=== PATIENT | male | born 1950 | race Caucasian/White ===

== ENCOUNTER 2018-02-15 11:12 | Emergency (ER) | payer MEDICARE ==
[2018-02-15 13:43] LABS: ABS Basophils 0 10^3/ul (0-0.2); ABS Eosinophils 0.1 10^3/ul (0-0.6); ABS Lymphocytes 1.3 10^3/ul (1.0-4.8); ABS Monocytes 0.5 10^3/ul (0-0.8); ABS Neutrophils 4.9 10^3/ul (1.5-7.7); ABS Nucleated RBC 0 10^3/ul; Eosinophil % 1.1 % (0-6); Hematocrit 45 % (42-52); Hemoglobin 15.2 g/dl (14.0-18.0); Lymphocyte % 19.7 % (25-47); Mean Corpuscular HGB Conc 34 g/dl (31-36); Mean Corpuscular Hemoglobin 29 pg (27-31); Mean Corpuscular Volume 84 fL (80-94); Mean Platelet Volume 7.8 um3 (7.4-10.4); Nucleated Red Blood Cells % 0.1; Platelet Count 223 10^3/ul (150-450); Red Blood Count 5.34 10^6/ul (4.00-5.40); Red Cell Distribution Width 17 % (10.5-15); White Blood Count 6.8 10^3/ul (3.5-10.8)
[2018-02-15 15:51] LABS: Urine Appearance Clear; Urine Blood Negative (Negative); Urine Color Yellow; Urine Ketones Trace (Negative); Urine Protein Negative (Negative); Urine Specific Gravity 1.014 (1.010-1.030); Urine Urobilinogen Negative (Negative)
--- NOTE | 2018-02-15 16:46 | ED ---
Abdominal Pain/Male - HPI Summary HPI Summary: The pt is a 67 year old male presenting to the ED with a chief complaint of abdominal pain. Pt states about 3 wks ago when he coughed or sneezed he had some odd feelings in his abd throughout the epigastric area and radiates to both sides. The pt has a hx of IBS so he states that he thought the pain was gas. A week ago today, he got very bad gas pains all throughout his abd. In the last three days, he has had pain right around the belly button, which he said was unbearable last night. Pt is having bowel movements but it hurts when he does. The pt also has a hernia in his pelvic region that is currently out but is not currently bothering him. The pt denies vomiting or fever. - History of Current Complaint Chief Complaint: EDAbdPain Stated Complaint: LOWER ABD PAIN Time Seen by Provider: 02/15/18 15:30 Hx Obtained From: Patient Onset/Duration: Lasting Weeks, Still Present Timing: Constant Severity Initially: Mild Severity Currently: Mild Pain Intensity: 4 Pain Scale Used: 0-10 Numeric Location: Umbilical Radiates: Yes - Allergies/Home Medications Allergies/Adverse Reactions: Allergies Allergy/AdvReac Type Severity Reaction Status Date / Time No Known Allergies Allergy Verified 02/15/18 11:22 PMH/Surg Hx/FS Hx/Imm Hx Previously Healthy: No Cardiovascular History: Reports: Hx Hypercholesterolemia, Hx Hypertension GI History: Reports: Hx Irritable Bowel, Other GI Disorders - see above hx Infectious Disease History: No Infectious Disease History: Denies: Traveled Outside the [place] in Last 30 Days - Family History Known Family History: Positive: Hypertension - Social History Alcohol Use: Rare Substance Use Type: Reports: None Smoking Status (MU): Never Smoked Tobacco Review of Systems Negative: Fever, Chills Negative: Erythema Negative: Sore Throat Negative: Chest Pain Negative: Shortness Of Breath, Cough Positive: Abdominal Pain. Negative: Vomiting, Nausea Negative: dysuria, hematuria Negative: Myalgia, Edema Negative: Rash Neurological: Negative - dizziness All Other Systems Reviewed And Are Negative: Yes Physical Exam - Summary Physical Exam Summary: Constitutional: Well-developed, Well-nourished, Alert. (-) Distressed Skin: Warm, Dry HENT: Normocephalic; Atraumatic Eyes: Conjunctiva normal Neck: Musculoskeletal ROM normal neck. (-) JVD, (-) Stridor, (-) Tracheal deviation Cardio: Rhythm regular, rate normal, Heart sounds normal; Intact distal pulses; The pedal pulses are 2+ and symmetric. Radial pulses are 2+ and symmetric. (-) Murmur Pulmonary/Chest wall: Effort normal. (-) Respiratory distress, (-) Wheezes, (-) Rales Abd: Soft, (-) epigastric tenderness, (-) Distension, (-) Guarding, (-) Rebound , (+) R inguinal hernia, (+) periumbilical hernia, belly pain ongoing. Musculoskeletal: (-) Edema Lymph: (-) Cervical adenopathy Neuro: Alert, Oriented x3 Psych: Mood and affect Normal Triage Information Reviewed: Yes Vital Signs On Initial Exam: Initial Vitals Temp Pulse Resp BP Pulse Ox 98.8 F 64 15 174/87 98 02/15/18 11:19 02/15/18 11:19 02/15/18 11:19 02/15/18 11:19 02/15/18 11:19 Vital Signs Reviewed: Yes Diagnostics - Vital Signs Vital Signs Temp Pulse Resp BP Pulse Ox 02/15/18 15:24 98.2 F 82 18 127/85 02/15/18 13:32 97.5 F 60 12 179/79 100 02/15/18 11:19 98.8 F 64 15 174/87 98 - Laboratory Lab Results: Lab Results 02/15/18 02/15/18 02/15/18 Range/Units 13:16 13:16 13:16 WBC 6.8 (3.5-10.8) 10^3/ul RBC 5.34 (4.00-5.40) 10^6/ul Hgb 15.2 (14.0-18.0) g/dl Hct 45 (42-52) % MCV 84 (80-94) fL MCH 29 (27-31) pg MCHC 34 (31-36) g/dl RDW 17 H (10.5-15) % Plt Count 223 (150-450) 10^3/ul MPV 7.8 (7.4-10.4) um3 Neut % (Auto) 71.5 (38-83) % Lymph % (Auto) 19.7 L (25-47) % Florence % (Auto) 7.2 H (0-7) % Eos % (Auto) 1.1 (0-6) % Baso % (Auto) 0.5 (0-2) % Absolute Neuts (auto) 4.9 (1.5-7.7) 10^3/ul Absolute Lymphs (auto) 1.3 (1.0-4.8) 10^3/ul Absolute Monos (auto) 0.5 (0-0.8) 10^3/ul Absolute Eos (auto) 0.1 (0-0.6) 10^3/ul Absolute Basos (auto) 0 (0-0.2) 10^3/ul Absolute Nucleated RBC 0 10^3/ul Nucleated RBC % 0.1 Sodium 138 (135-145) mmol/L Potassium 3.4 L (3.5-5.0) mmol/L Chloride 103 (101-111) mmol/L Carbon Dioxide 25 (22-32) mmol/L Anion Gap 10 (2-11) mmol/L BUN 16 (6-24) mg/dL Creatinine 1.03 (0.67-1.17) mg/dL Est GFR ( Amer) 87.2 (>60) Est GFR (Non-Af Amer) 72.0 (>60) BUN/Creatinine Ratio 15.5 (8-20) Glucose 113 H (70-100) mg/dL Lactic Acid 1.7 (0.5-2.0) mmol/L Calcium 9.6 (8.6-10.3) mg/dL Total Bilirubin 0.60 (0.2-1.0) mg/dL AST 16 (13-39) U/L ALT 17 (7-52) U/L Alkaline Phosphatase 42 (34-104) U/L C-Reactive Protein 6.48 (<8.01) mg/L Total Protein 8.0 (6.4-8.9) g/dL Albumin 4.6 (3.2-5.2) g/dL Globulin 3.4 (2-4) g/dL Albumin/Globulin Ratio 1.4 (1-3) Amylase 24 L (29-103) U/L Lipase 26 (11.0-82.0) U/L Urine Color Urine Appearance Urine pH (5-9) Ur Specific Madison (1.010-1.030) Urine Protein (Negative) Urine Ketones (Negative) Urine Blood (Negative) Urine Nitrate (Negative) Urine Bilirubin (Negative) Urine Urobilinogen (Negative) Ur Leukocyte Esterase (Negative) Urine Glucose (Negative) Urine Ascorbic Acid (Negative) 02/15/18 Range/Units 15:45 WBC (3.5-10.8) 10^3/ul RBC (4.00-5.40) 10^6/ul Hgb (14.0-18.0) g/dl Hct (42-52) % MCV (80-94) fL MCH (27-31) pg MCHC (31-36) g/dl RDW (10.5-15) % Plt Count (150-450) 10^3/ul MPV (7.4-10.4) um3 Neut % (Auto) (38-83) % Lymph % (Auto) (25-47) % Florence % (Auto) (0-7) % Eos % (Auto) (0-6) % Baso % (Auto) (0-2) % Absolute Neuts (auto) (1.5-7.7) 10^3/ul Absolute Lymphs (auto) (1.0-4.8) 10^3/ul Absolute Monos (auto) (0-0.8) 10^3/ul Absolute Eos (auto) (0-0.6) 10^3/ul Absolute Basos (auto) (0-0.2) 10^3/ul Absolute Nucleated RBC 10^3/ul Nucleated RBC % Sodium (135-145) mmol/L Potassium (3.5-5.0) mmol/L Chloride (101-111) mmol/L Carbon Dioxide (22-32) mmol/L Anion Gap (2-11) mmol/L BUN (6-24) mg/dL Creatinine (0.67-1.17) mg/dL Est GFR ( Amer) (>60) Est GFR (Non-Af Amer) (>60) BUN/Creatinine Ratio (8-20) Glucose (70-100) mg/dL Lactic Acid (0.5-2.0) mmol/L Calcium (8.6-10.3) mg/dL Total Bilirubin (0.2-1.0) mg/dL AST (13-39) U/L ALT (7-52) U/L Alkaline Phosphatase (34-104) U/L C-Reactive Protein (<8.01) mg/L Total Protein (6.4-8.9) g/dL Albumin (3.2-5.2) g/dL Globulin (2-4) g/dL Albumin/Globulin Ratio (1-3) Amylase (29-103) U/L Lipase (11.0-82.0) U/L Urine Color Yellow Urine Appearance Clear Urine pH 7.0 (5-9) Ur Specific Madison 1.014 (1.010-1.030) Urine Protein Negative (Negative) Urine Ketones Trace A (Negative) Urine Blood Negative (Negative) Urine Nitrate Negative (Negative) Urine Bilirubin Negative (Negative) Urine Urobilinogen Negative (Negative) Ur Leukocyte Esterase Negative (Negative) Urine Glucose Negative (Negative) Urine Ascorbic Acid * A (Negative) Result Diagrams: 02/15/18 13:16 02/15/18 13:16 Lab Statement: Any lab studies that have been ordered have been reviewed, and results considered in the medical decision making process. - CT ABD/PELV CT Interpretation: Positive (See Comments) - ABD/PELV CT - 1. Large right inguinal hernia with CT findings suggestive of incarceration. CT Interpretation Completed By: Radiologist - ED physician has reviewed this report. Re-Evaluation - Re-Evaluation 1 Re-Evaluation Time: 18:00 Change: Improved Comment: R inguinal hernia has reduced and is feeling better. Pt evaluated by Dr. Dubon and he recommended d/c if imaging is negative. Second Eval Change: Improved - STOOLING AFTER CONTRAST, FEELS BETTER, NO VOMITING Abdominal Pain Fem Course/Dx - Course Course Of Treatment: Pt is a 67 year old male presenting to the ED with abd pain onset about 3 days ago. He was having some off feelings in his abd the past couple of weeks, but he attributed it to gas pain. It got much worse last night which is why he is here. He presently denies vomiting or fevers. The pt states he has a hx of a pelvic hernia and IBS. 1937 - Upon re-evaluation, the pt looks well, there are no signs of obstruction, and he tolerated PO. Dr. Dubon will see him in his office tomorrow. nO CLINICAL SIGNS OF OBSTRUCTION - NO VOMITING, PASSING STOOL IN THE ED. FEELS BETTER. GAVE INSTRUCTIONS HOW TO SELF REDUCE HERNIA. RETURN TO ED INSTRUCTIONS GIVEN. HAS HAD A TEN HOUR OBSERVATION IN TH E ED, TOLERATING PO WELL. GAVE INSTRUCTIONS ABOUT TAKING HIS NIGHT TIME MEDICATIONS, TAKE HIS DAYTIME MEDICATIONS TOMORROW. I ANSWERED HIS QUESTIONS AT LENGTH, ALSO REINFORCED THE PLAN WITH HIS SISTER CHUY AND ALSO HIS HYVST-JF-ADA, DR. 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 ENCOURAGED PT TO RETURN FOR INTRACTABLE PAIN OR VOMITING OR SEVERE PAIN - Diagnoses Provider Diagnoses: Inguinal hernia, right, Periumbilical pain Discharge - Sign-Out/Discharge Documenting (check all that apply): Patient Departure - Discharge Plan Condition: Stable Disposition: HOME Patient Education Materials: Inguinal Hernia (ED) Referrals: Dougie Dubon MD [Medical Doctor] - 1 Day (TELL CHIEF CLERK SHELTER FIRST THING IN MORNING YOU NEED AN APPOINTMENT FOR 02/16/18.) Additional Instructions: Follow up with Dr. Dubon tomorrow, plan for elective hernia repair. - Billing Disposition and Condition Condition: STABLE Disposition: Home - Attestation Statements Document Initiated by Scribe: Yes Documenting Scribe: Marcella Lewis Provider For Whom Scribe is Documenting (Include Credential): Rufino Johnson MD. Scribe Attestation: I, Marcella Lewis, scribed for Rufino Johnson MD. on 02/15/18 at 2038. Scribe Documentation Reviewed: Yes Provider Attestation: The documentation as recorded by the scribe, Marcella Lewis accurately reflects the service I personally performed and the decisions made by me, Rufino Johnson MD.
[2018-02-15] MEDS ORDERED: Iohexol 300* (CONTRAST) 10 ML SDV IV ONE (17:25)
--- NOTE | 2018-02-15 19:16 | RAD ---
EXAM: CT Abdomen and Pelvis With Intravenous Contrast CLINICAL HISTORY: 67 years old, male; Pain; Abdominal pain; Additional info: Abd pain, periumbilical pain TECHNIQUE: Axial computed tomography images of the abdomen and pelvis with intravenous contrast. All CT scans at this facility use at least one of these dose optimization techniques: automated exposure control; mA and/or kV adjustment per patient size (includes targeted exams where dose is matched to clinical indication); or iterative reconstruction. Coronal and sagittal reformatted images were created and reviewed. CONTRAST: 121 mL of omni 300 administered intravenously. COMPARISON: A/P W CT ABD/PEL W 11/14/2013 9:56 AM FINDINGS: Lung bases: Unremarkable. No mass. No consolidation. ABDOMEN: Liver: Unremarkable. No mass. Gallbladder and bile ducts: Unremarkable. No calcified stones. No ductal dilation. Pancreas: Unremarkable. No mass. No ductal dilation. Spleen: Unremarkable. No splenomegaly. Adrenals: Unremarkable. No mass. Kidneys and ureters: Unremarkable. No solid mass. No hydronephrosis. Stomach and bowel: Large right inguinal hernia containing multiple loops of bowel with focal mucosal thickening. A dilated loop of bowel with air fluid level is present in the abdomen adjacent to the hernia. PELVIS: Appendix: No findings to suggest acute appendicitis. Bladder: Unremarkable. No mass. Reproductive: Unremarkable as visualized. ABDOMEN and PELVIS: Intraperitoneal space: Unremarkable. No free air. No significant fluid collection. Bones/joints: No acute fracture. No dislocation. Soft tissues: See above. Vasculature: Atherosclerotic calcification. No abdominal aortic aneurysm. Lymph nodes: Unremarkable. No enlarged lymph nodes. IMPRESSION: 1. Large right inguinal hernia with CT findings suggestive of incarceration.
[2018-02-15 20:19] VITALS: BP 123/58
== END 2018-02-15 20:17 | disposition home or self-care (01) ==
LOC: ED 11:12
DX: K40.90 Unilateral inguinal hernia, without obstruction or gangrene, not specified as recurrent (principal); R10.33 Periumbilical pain
CPT/HCPCS: 36415; 74177; 80053; 81003; 82150; 83605; 83690; 85025; 86140; 99283; Q9967

== ENCOUNTER 2018-02-22 08:01 | Day surgery (SDC) | payer MEDICARE ==
[~2018-02-22 08:01] MED LIST: Buffered Lidocaine 0.9% SYRIN* 5 ML/SYR SYRINGE INTRADERM ONE; Bupivacaine 0.25% EPI 200,000* 30 ML SDV ONE; Bupivacaine 0.5% SDV PF* 30ML VIAL ONE; Famotidine IV* 10 MG/ML 2 ML (20 mg) IV ONE; Lidocaine 1% INJ* 10 MG/ML 30 ML SDV ONE; Midazolam* 1 MG/ML 5 ML VIAL (5 MG) ONE; fentaNYL* 50 MCG/ML 2 ML VIAL (100 MCG VIAL) ONE
[2018-02-22] MEDS ORDERED: Famotidine IV* 10 MG/ML 2 ML (20 mg) ONE (08:23)
[2018-02-22] MEDS ORDERED: ceFAZolin 2 GM in NS PREMIX(*) 2 GM/100 ML BAG IVPB ONE (08:23)
[2018-02-22] MEDS ORDERED: DiMENhydriNATE IV* 50 MG/ML VIAL IV PUSH PRN (08:28)
[2018-02-22] MEDS ORDERED: Naloxone* 0.4 MG/ML 1 ML VIAL IV PRN (08:28)
[2018-02-22] MEDS ORDERED: oxyCODONE TAB* 5 MG TAB PO PRN (08:28)
[2018-02-22] MEDS ORDERED: HYDROmorphone INJ1* 1 MG/ML SYRINGE IV PRN (08:28)
[2018-02-22] MEDS ORDERED: Acetaminophen TAB* 325 MG PO PRN (08:28)
[2018-02-22] MEDS ORDERED: KETAMINE HCL* 50 MG/ML 10 ML VIAL ONE (09:21)
[2018-02-22] MEDS ORDERED: Ondansetron INJ* 2 MG/ML VIAL ONE (09:28)
[2018-02-22] MEDS ORDERED: Ketorolac INJ* 30 MG/ML 1 ML VIAL ONE (09:28)
[2018-02-22] MEDS ORDERED: Lidocaine 2% PF * 5 ML VIAL ONE (09:28)
[2018-02-22] MEDS ORDERED: Propofol* 10 MG/ML 20 ML BTL IV PUSH ONE (09:28)
[2018-02-22] MEDS ORDERED: DiMENhydriNATE IV* 50 MG/ML VIAL ONE (09:29)
[2018-02-22] MEDS ORDERED: fentaNYL* 50 MCG/ML 2 ML VIAL (100 MCG VIAL) ONE (10:43)
--- NOTE | 2018-02-22 12:13 | BRIEFOPN ---
Brief Operative Note - Surgery Procedures: Procedures Pre-OP Diagnoses: Right inguinal hernia Post-op Diagnosis: same Procedure: open Right inguinal hernia repair with mesh Surgeon: Jagdish Asst: Becka Pereira Anethesia: Local MAC to GA with LMA Dr Cedillo EBL: 50cc IVF: LR Specimen: none Drains: none
[2018-02-22 13:07] VITALS: BP 146/85
--- NOTE | 2018-02-23 08:45 | OP ---
CC: Jordin Steele MD * DATE OF OPERATION: 02/22/18 - [facility] DATE OF : 50. SURGEON: Dougie Dubon MD. ASSISTANTS: ANNE-MARIE Preston and Dr. Jovel. ANESTHESIOLOGIST: Dr. Cedillo. ANESTHESIA: Local MAC anesthesia converted to general anesthesia with LMA. PRE-OP DIAGNOSIS: Right inguinal hernia. POST-OP DIAGNOSIS: Right inguinal hernia. OPERATIVE PROCEDURE: Open right inguinal hernia repair with mesh. ESTIMATED BLOOD LOSS: 50 cc. FLUIDS: Lactated Ringer's given. SPECIMEN: None. DRAINS: None. DESCRIPTION OF PROCEDURE: The patient was identified in the preoperative area. The patient was marked. Consent was signed. He was taken to the operating room , placed on the operating table in supine position. Preoperative antibiotics were given. Sequential devices were placed on bilateral lower extremities. Gentle sedation was induced. The patient's right groin was clipped of hair and prepped and draped in a standard surgical fashion. A time-out was performed. Injection of lidocaine along the proposed incision of the right groin was carried out. This incision was made and deepened down through Arcelia's fascia on to the external oblique aponeurosis which showed clear identifiable defect. We were able to clean off some of the area of the hernia and did reduce the contents of this inguinal hernia. Next, the aponeurosis of the external oblique was incised along the direction of its fibers right to the cord structures and also laterally. Flaps were made both cephalad and caudad and the somatic structures along with the hernia sac were isolated around a David drain. Next, both blunt and sharp dissection were utilized to isolate the spermatic structures. This was performed and we were able to follow the structures that appeared to be in the sac to the internal ring and taking steps to assure hemostasis and not to enter into the sac. We took cremasteric muscle fibers that had been attenuated and also removed what appeared to be a lipoma of the cord. This was passed off, but not sent as a specimen. Next, the floor of the inguinal canal was approached. This appeared to have a large defect, but the contents extending to this area appeared more of the muscular fibers that had stretched out. We removed these until we could see the floor of the canal at best and although this was significantly weakened, I could not identify any enlarged sac that would have given the patient the enlarged hernia that we were aware of. Next, at this point, I extended my incision laterally and medially and we were able to identify the internal ring better. Once we did this, we were able to pull up the adjacent structures and see that we had a portion of the hernia sac or at least peritoneum in our grasp that had been opened up. It was very attenuated tissue that did not appear peritoneal like except for the fact that I could extend my finger into the abdominal cavity. We could see small bowel that appeared healthy and intact and noted that this was adhered to the edges of what appeared to now at this point the portion of the sac. It seems that we had ligated portion of the sac safely, but unknowingly at an early portion of the procedure. At this point, the peritoneum was drawn up and clamped and the small bowel was lysed off of the portions of this peritoneal area until we could safely grasp edges of peritoneum and keeping the small bowel safe. At one point, I did have an area of the small bowel that I wish to imbricate with a 3-0 silk stitch. There was no violation of the full thickness of the bowel, but the 3-0 silk suture was site and this was away from where we were placing our stitches and so it was going to be the closure of the peritoneum. Next, the peritoneum was closed with a running 2-0 Vicryl suture locking this, taking meticulous care not to pick any of the small bowel within this. Once this was closed, this was able to be reduced back. We had applied tension on this to place the sutures. Once this fell back into the abdomen, we could identify our internal ring safely and utilized the large patch and plug set that was opened up. The plug was placed into the internal ring nicely and we have to suture this to the shelving edges of the inguinal ligament and also laterally to the transversalis muscle. With the plug intact, we then placed the patch suturing this to the pubic tubercle and also superiorly to the conjoint tendon and extending this laterally and also sewing it with additional 2-0 Vicryl sutures through the shelving edge of the inguinal ligament. The tails of the mesh were reapproximated with an additional suture after bringing this around the spermatic structures and assuring that it is not too tight. Tails were tucked onto the external oblique aponeurosis and fascial layer intact covering all defects. Next, we irrigated. Hemostasis was achieved and the external oblique aponeurosis was reapproximated with running 2-0 Vicryl stitch and Arcelia's fascia was closed interrupted 2-0 Vicryl stitches and the skin was closed in a standard fashion with 3-0 Vicryl followed by 4-0 Monocryl subcuticular suture. Steri-Strips and sterile dressing were applied. The patient tolerated the procedure well, was awoken up in the OR, and transferred to the PACU in stable condition. Please note that this did represent 2-1/2 hour case, which is 150% more than a typical hour that we would spend on such case. [id number]/CPS #: [id number] AUBRIE
== END 2018-02-22 14:17 | disposition home or self-care (01) ==
LOC: OR 08:01
PROVIDERS: ATTEND Surgery
DX: K40.30 Unilateral inguinal hernia, with obstruction, without gangrene, not specified as recurrent (principal); I10 Essential (primary) hypertension; E78.5 Hyperlipidemia, unspecified; I47.2 Ventricular tachycardia; J30.2 Other seasonal allergic rhinitis; K21.9 Gastro-esophageal reflux disease without esophagitis; F41.9 Anxiety disorder, unspecified
CPT/HCPCS: C1781; J0690; J1240; J1885; J2250; J2405; J2704; J3010

== ENCOUNTER 2018-09-10 17:34 | Inpatient (IN) | payer MEDICARE ==
--- OUTSIDE RECORDS SUMMARY | 2018-09-10 17:53 | XMS REPORT | Continuity of Care Document ---
:1950 External Reference #:[id number] Author Name Ace Ambriz M.D. Address 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 Cedric GARCIA, Jordin Primary Care Physician Unavailable Payers Date Identification Numbers Payment Provider Subscriber Policy Number: [id number] Medicare [place] Fady Liang JR PayID: [id number] [address] [place] [address] Policy Number: [id number] [facility] Health Care Options Fady Liang JR PayID: [id number] [address] [place] [address] Advance Directives Description No Information Available Problems Description No Information Family History Date Family Member(s) Observation Comments General Glaucoma Father Glaucoma Social History Type Date Description Comments Sex Unknown ETOH Use Never used alcohol Tobacco Use Start: Unknown Patient has never smoked Smoking Status Reviewed: 08/18/18 Patient has never smoked Allergies, Adverse Reactions, Alerts Date Description Reaction Status Severity Comments 07/10/2018 Lactose Active Medications Medication Date Status Form Strength Qnty SIG Indications Ordering Provider Simvastatin 10/19 Active Tablets 20mg 90tab take one Cedric marta wen MD, by mouth Jordin once daily Metrogel 04/25 Active Gel 1% Cedric Jordin GARCIA Metoclopramide HCL 11/06 Active Tablets 5mg 60tab Take edu marta One-Half Aliya GARICA By Mouth Once Daily Except On 6TH Day Take One Whole Tablet Ranitidine HCL 08/20 Active Tablets 300mg 90tab take one Cedric marta tablet MD by mouth Jordin once daily Hydrochlorothiazide 02/26 Active Tablets 25mg 90tab take one Cedric marta tablet MD by mouth Jordin once daily Vitamin C Active Tablets 500mg 1 po qd / Vitamin D Active Tablets 1000Unit 1 po qd Unknown /0000 Nexium Active Capsules 40mg 90cap [address] marta Amitriptyline HCL Active Tablets 10mg 60tab take 1 Unknown /0000 s tablet every evening Metoprolol Succinate Active Tablets 100mg Take 1 Unknown ER /0000 ER 24HR po am and 50mg at hs Potassium Chloride ER Active Tablets 20Meq 1 by Unknown /0000 ER mouth every day Immunizations Description No Information Available Vital Signs Date Vital Result Comment 08/18/2018 11:24am Intraocular Pressure Right Eye 20 mmHg Intraocular Pressure Left Eye 20 mmHg Results Description No Information Available Procedures Description No Information Available Encounters Description No Information Available Plan of Treatment 08/18/2018 - Segundo Melendez, ODH49.21 Sixth [abducent] nerve palsy, right eyeFollow up:1 [id number] Squamous blepharitis right lower eyelidFollow up:1 [id number] Squamous blepharitis left lower eyelidFollow up:1 [id number] Open angle with borderline findings, low risk, bilateralFollow up:1 month
[2018-09-10] MEDS ORDERED: NS 0.9% 1000 ML** 1,000 ML IV ONE (19:44)
--- NOTE | 2018-09-10 19:49 | ED ---
Complex/Multi-Sys Presentation - HPI Summary HPI Summary: This patient is a 68 year old F presenting to ED accompanied by a friend with a chief complaint of multiple complaints since 08/16/18. It all started off with swollen eyes (saw an platform worker and was dx with sixth nerve palsy in the R eye). He was given glasses to help fix it but he still continues to have double vision. The next week, he woke up with a stiff neck that lasted 3-4 weeks. Now, he has difficulty swallowing due to L gland and L cheek swelling since 10 days ago that has recently worsened. He has only been able to swallow water and bananas. He says that he hasnt been able to take his medications for the last 3 days. The patient rates the pain 0/10 in severity. Symptoms aggravated by nothing. Symptoms alleviated by nothing. Friend reports the patient has had SOB and that he has been dragging his L foot for the last 3 days. The patient has weakness in the RLE and has had difficulty ambulating for the last 3 days.The patient lives alone. - History Of Current Complaint Chief Complaint: EDWeakness Time Seen by Provider: 09/10/18 19:20 Hx Obtained From: Patient, Other: - accompanied by friend Onset/Duration: Sudden Onset, Lasting Weeks, Still Present Timing: Constant, Weeks Severity Currently: None Aggravating Factor(s): nothing Alleviating Factor(s): nothing Associated Signs And Symptoms: Positive: SOB, Other - dragging his L foot, weakness in the RLE, difficulty ambulating, swollen eyes, double vision, stiff neck, L gland and cheek swelling, and difficulty swallowing - Allergies/Home Medications Allergies/Adverse Reactions: Allergies Allergy/AdvReac Type Severity Reaction Status Date / Time No Known Allergies Allergy Verified 02/22/18 08:25 PMH/Surg Hx/FS Hx/Imm Hx Endocrine/Hematology History: Denies: Hx Diabetes Cardiovascular History: Reports: Hx Hypercholesterolemia, Hx Hypertension, Other Cardiovascular Problems/Disorders - PAROXYSMAL V- TACH: DR CASILLAS, 2015 CARDIAC CATH DONE Denies: Hx Pacemaker/ICD GI History: Reports: Hx Gastroesophageal Reflux Disease, Hx Hiatal Hernia, Hx Irritable Bowel, Other GI Disorders History: Denies: Hx Renal Disease Musculoskeletal History: Reports: Other Musculoskeletal History - LEFT KNEE Sensory History: Reports: Hx Contacts or Glasses - DOESN'T WAER ALL THE TIME Denies: Hx Hearing Aid Opthamlomology History: Reports: Hx Contacts or Glasses - DOESN'T WAER ALL THE TIME Psychiatric History: Denies: Hx Panic Disorder - Surgical History Surgery Procedure, Year, and Place: 02/2018 HERNIA REPAIR-BOWEL/SMALL INTESTINE Hx Anesthesia Reactions: No Infectious Disease History: No Infectious Disease History: Denies: Traveled Outside the [place] in Last 30 Days - Family History Known Family History: Positive: Hypertension - Social History Alcohol Use: Daily Alcohol Amount: 1 DRINK/DAY WITH DINNER Substance Use Type: Reports: None Smoking Status (MU): Never Smoked Tobacco Review of Systems Positive: Other - swollen eyes, double vision Positive: Other - L gland and cheek swelling, difficulty swallowing Positive: Other - stiff neck Neurological: Other - dragging his L foot, weakness in the RLE, difficulty ambulating All Other Systems Reviewed And Are Negative: Yes Physical Exam - Summary Physical Exam Summary: VITAL SIGNS: Reviewed. GENERAL: Patient is a well-developed and nourished MALE who is lying comfortable in the stretcher. Patient is not in any acute respiratory distress. HEAD AND FACE: No signs of trauma. No ecchymosis, hematomas or skull depressions. No sinus tenderness. EYES: PERRLA, EOMI x 2, No injected conjunctiva, no nystagmus. EARS: Hearing grossly intact. Ear canals and tympanic membranes are within normal limits. MOUTH: Oropharynx within normal limits. NECK: Supple, trachea is midline, no adenopathy, no JVD, no carotid bruit, no c- spine tenderness, neck with full ROM. CHEST: Symmetric, no tenderness at palpation LUNGS: Clear to auscultation bilaterally. No wheezing or crackles. CVS: Regular rate and rhythm, S1 and S2 present, no murmurs or gallops appreciated. ABDOMEN: Soft, non-tender. No signs of distention. No rebound no guarding, and no masses palpated. Bowel sounds are normal. EXTREMITIES: FROM in all major joints, no edema, no cyanosis or clubbing. NEURO: Alert and oriented x 3. Speech is normal and follows commands. 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 Minimal weakness in the RLE *Somewhat difficulty holding against gravity*. Normal voice, no drooling, and is able to take sips of water without vomiting. SKIN: Dry and warm GCS: 15 Triage Information Reviewed: Yes Vital Signs On Initial Exam: Initial Vitals Temp Pulse Resp BP Pulse Ox 98.3 F 84 16 152/96 98 09/10/18 17:38 09/10/18 17:38 09/10/18 17:38 09/10/18 17:38 09/10/18 17:38 Vital Signs Reviewed: Yes Diagnostics - Vital Signs Vital Signs Temp Pulse Resp BP Pulse Ox 09/10/18 17:38 98.3 F 84 16 152/96 98 - Laboratory Result Diagrams: 09/10/18 21:36 09/10/18 21:36 Lab Statement: Any lab studies that have been ordered have been reviewed, and results considered in the medical decision making process. - Radiology CXR Radiology Interpretation Completed By: ED Physician Summary of Radiographic Findings: No acute processes. Pending radiologist official report. - CT Brain CT CT Interpretation Completed By: Radiologist Summary of CT Findings: 1. No acute intracranial abnormality. ASPECT = 10. 2. Age-related atrophy and mild chronic small vessel ischemic disease. Dr. Abdul has reviewed this radiology report. Neck CT CT Interpretation Completed By: Radiologist Summary of CT Findings: Normal post contrast neck CT. Dr. Abdul has reviewed this radiology report. - EKG 2011 Cardiac Rate: NL - 75 BPM EKG Rhythm: Sinus Rhythm Summary of EKG Findings: PVCs and non-specific T-wave changes Re-Evaluation - Re-Evaluation First Eval Re-Evaluation Time: 23:15 Comment: The patient states he is not much better. Second Eval Re-Evaluation Time: 23:35 Comment: BP was low. Complex Multi-Symp Course/Dx Assessment/Plan: This patient is a 68 year old F presenting to ED accompanied by a friend with a chief complaint of multiple complaints since 08/16/18. In the ED course, the patient was given fluids, potassium, and lopressor. EKG reveals NSR at 75 BPM, PVCs, and non-specific T-wave changes. CXR, per Dr. Abdul, reveals no acute processes. Brain CT reveals 1. No acute intracranial abnormality. ASPECT = 10. 2. Age-related atrophy and mild chronic small vessel ischemic disease. Neck CT reveals normal post contrast neck CT. Consulted Dr. Fowler about the patient's case at 2320 and she accepts taylor patient for admission. This patient will be admitted with dx of dysphasia. Patient understands and agrees with this plan. - Diagnoses Differential Diagnoses/HQI/PQRI: Other - dysphasia Provider Diagnoses: Dysphasia - Physician Notifications Discussed Care Of Patient With: Giovanna Fowler Time Discussed With Above Provider: 23:20 Instructed by Provider To: Admit As Inpatient Discharge - Sign-Out/Discharge Documenting (check all that apply): Patient Departure - admit Patient Received Moderate/Deep Sedation with Procedure: No - Discharge Plan Condition: Stable Disposition: ADMITTED TO [facility] - Billing Disposition and Condition Condition: STABLE Disposition: Admitted to [facility] - Attestation Statements Document Initiated by Nevilleibe: Yes Documenting Scribe: Eladio Beaulieu Provider For Whom Ward is Documenting (Include Credential): Seth Abdul MD Scribe Attestation: Eladio Robins, scribed for Seth Abdul MD on 09/11/18 at 0607. Scribe Documentation Reviewed: Yes Provider Attestation: The documentation as recorded by the Eladio moreno accurately reflects the service I personally performed and the decisions made by Remedios mcclellan MD Status of Scribe Document: Viewed
[2018-09-10] MEDS ORDERED: Metoprolol Tartrate IV* 1 MG/ML 5 ML VIAL IV ONE (19:51)
[2018-09-10 21:47] LABS: ABS Basophils 0 10^3/ul (0-0.2); ABS Eosinophils 0.1 10^3/ul (0-0.6); ABS Lymphocytes 1.4 10^3/ul (1.0-4.8); ABS Monocytes 0.6 10^3/ul (0-0.8); ABS Neutrophils 4.7 10^3/ul (1.5-7.7); ABS Nucleated RBC 0 10^3/ul; Eosinophil % 1.7 %; Hematocrit 47 % (36-46); Hemoglobin 16.1 g/dL (14.0-18.0); Lymphocyte % 20.5 %; Mean Corpuscular HGB Conc 34 g/dL (31-36); Mean Corpuscular Hemoglobin 32 pg (27-31); Mean Corpuscular Volume 93 fL (80-94); Mean Platelet Volume 8.3 fL (7.4-10.4); Nucleated Red Blood Cells % 0; Platelet Count 231 10^3/uL (150-450); Red Blood Count 5.03 10^6 /uL (4.18-5.48); Red Cell Distribution Width 13 % (10.5-15); White Blood Count 6.9 10^3/uL (3.5-10.8)
[2018-09-10 21:54] LABS: Activated Partial Thrombo Time 26.8 seconds (26.0-36.3); INR 1.23 (0.77-1.02)
[2018-09-10 22:04] LABS: Albumin 4.5 g/dL (3.2-5.2); Albumin/Globulin Ratio 1.6 (1-3); BUN/Creatinine Ratio 26.6 (8-20); C Reactive Protein 4.73 mg/L (<8.01); Calcium 9.6 mg/dL (8.6-10.3); EGFR African American 96.6 (>60); EGFR Non-African American 79.8 (>60); Globulin 2.8 g/dL (2-4); Magnesium 1.9 mg/dL (1.9-2.7); Potassium 3.3 mmol/L (3.5-5.0); Total Bilirubin 0.7 mg/dL (0.2-1.0); Total Protein 7.3 g/dL (6.4-8.9)
[2018-09-10 22:07] LABS: Troponin I 0.02 ng/mL (<0.04)
[2018-09-10] MEDS ORDERED: Iohexol 300* (CONTRAST) 10 ML SDV IV ONE (22:09)
[2018-09-10] MEDS ORDERED: KCL 10 MEQ/50 ML IVPREMIX* 10 MEQ/50 ML BAG IV ONE (22:19)
[2018-09-10 22:40] LABS: TSH (Thyroid Stimulating Horm) 0.8 mcIU/mL (0.34-5.60)
[2018-09-11] MEDS ORDERED: NS 0.9% 1000 ML** 1,000 ML IV SCH (01:30)
[2018-09-11] MEDS: KCL 20 MEQ/100 ML IVPREMIX* 20 MEQ/100 ML BAG IV SCH ×3 (02:09→06:44)
[2018-09-11] MEDS: Metoprolol Tartrate IV* 1 MG/ML 5 ML VIAL IV SCH ×6 (02:09→22:24)
--- NOTE | 2018-09-11 04:59 | HP ---
CC: Dr. Steele; Dr. Chavez; Dr. Ralph; Dr. Ambriz * HISTORY AND PHYSICAL: DATE OF ADMISSION: 09/11/18 PRIMARY CARE PROVIDER: Dr. Steele. CHIEF COMPLAINT: Trouble swallowing. HISTORY OF PRESENT ILLNESS: Fady Liang is a 68-year-old male with a history of irritable bowel syndrome, history of ventricular tachycardia; on metoprolol, and hypertension as well as dyslipidemia who was diagnosed by Dr. Ambriz of ophthalmology with right nerve palsy on 08/16/18. Patient stated that on that day he noted that he was seeing double when he looked to the right. He went to see Dr. Ambriz, who stated that patient had nerve palsy. He was recommended to have MRIs obtained. Those were done on 08/22/18 and both brain MRI and cervical spine MRI were unremarkable, apart from a small focus of enhancement within the right inferior basal ganglia measuring up to 0.3 cm in size, of unclear etiology. There were also scattered small nonenhancing foci of elevated T2 FLAIR signal within the periventricular and subcortical white matter that could be seen in association with migraine headache or the sequelae of previous infection, inflammation, or chronic small-vessel ischemia. Once again, the C-spine MRI showed multilevel neural foraminal narrowing as well as left-sided disk protrusions at C2 to C4. Patient stated that after 08/16/18 when he was diagnosed with the right facial nerve palsy, he had been doing okay, apart from getting adjusted to seeing double on the right side, but for approximately 3 weeks or so, he has had neck pain and left-sided cheek pain. Just within the past week, he was seen by Dr. Steele for that who prescribed amoxicillin for the patient. Patient has taken it for 5 days and he stated that his symptoms of left cheek swelling and "swollen glands in the neck" resolved. Today, he was noted by his female friend that he was dragging his left foot. He also was noted to be dyspneic on exertion, although he himself does not complain of that. His female friend, who was assisting him in the patient's room today, stated that she thought he was looking "breathless." He has not had problems with any chest pain. For the past couple of weeks, patient stated that he has been having problems with swallowing and for the past 2 days, it was unbearable. He stated that he was trying to swallowing his metoprolol, but it was "coming up." He denied any nausea, but he has stated that the pills were getting stuck. He denies any pain with swallowing. Due to the problems of swallowing, he presented to the emergency department and he was noted to have frequent PVCs since he missed his dose of metoprolol. He was treated with IV metoprolol and he is going to be placed on overnight observation with the diagnosis of difficulty swallowing and frequent PVCs. PAST MEDICAL HISTORY: 1. History of irritable bowel syndrome. 2. Recent inguinal hernia surgery in February 2018. 3. History of gastroesophageal reflux disease. 4. History of ventricular tachycardia that was exercise-induced, under the care of Dr. Chavez, on metoprolol. 5. History of hemorrhoids. 6. Hypertension. 7. Dyslipidemia. ALLERGIES: No known drug allergies. HOME MEDICATIONS: Include: 1. "IBgard" 1 tablet daily. 2. Metronidazole topical to affected areas of face p.r.n. 3. Vitamin D3 at 1000 units daily. 4. Vitamin C 500 mg daily. 5. Simvastatin 20 mg daily. 6. Fiber supplement 1 tablet daily. 7. Ranitidine 300 mg at bedtime. 8. Probiotic 1 mg daily. 9. Potassium chloride 20 mEq daily. 10. Metoprolol succinate 50 mg q.p.m., 100 mg q.a.m. 11. Reglan 5 mg at bedtime. 12. Mag-Ox 400 mg daily. 13. Hydrochlorothiazide 25 mg daily. 14. Nexium 40 mg daily. 15. Vitamin B12 at 1000 mcg daily. 16. Calcium carbonate 1000 mg daily. 17. Amitriptyline 10 mg at bedtime. FAMILY HISTORY: Positive for mother with history of breast cancer who at the age of 62. Father with history of heart disease who of lung cancer in his 80s. 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 He denies any current alcohol use, but he has a history of alcohol use over 15 years ago. He denies any drug use. He lives alone and as his surrogate he names his nephew, Levi Trinidad, who is a neurosurgeon in [place]. Levi's phone number is [phone]. He also has a sister who lives in [facility]. REVIEW OF SYSTEMS: Please see history of present illness. All the remaining 12 systems were reviewed with the patient and were, otherwise, negative. PHYSICAL EXAMINATION GENERAL: Patient is a pleasant 68-year-old male who is in no acute distress. Alert, awake, oriented x3. VITAL SIGNS: Blood pressure of 137/106, heart rate of 95 and with frequent PVCs on telemetry, respiratory rate 20, oxygen saturation 98% on room air, temperature 98.0. HEENT: Head: Atraumatic, normocephalic. Eyes: Pupils are equal and reactive to light and accommodation. Oropharynx clear. Mucosa moist. NECK: Supple. No JVD. No bruits bilaterally. There is no neck stiffness and no tenderness to palpation. No masses are detected on neck evaluation. RESPIRATORY: Clear to auscultation bilaterally. CARDIOVASCULAR: Regular rate and rhythm. No murmur. ABDOMEN: Soft, nontender. Bowel sounds present in all 4 quadrants. EXTREMITIES: There is no edema, pulses +2 bilaterally. There is no clubbing or cyanosis. NEUROLOGIC EVALUATION: Patient has problems with abduction of the right eye due to right nerve palsy. Otherwise, his cranial nerves appear to be intact. His rapid alternating movements in bilateral upper extremities are fine. His eritby-mk-rbxo is minimally dysmetric, but symmetrical. There is no pronator drift. His hand circuit clerk is 5/5 bilaterally. On evaluation of motor function of bilateral lower extremities, patient appears to have right leg weakness. He is able to raise it off the bed for a brief amount of time, but has problems with doing it against resistance. The motor strength would be at 4 /5. Babinski's is negative bilaterally. Motor strength in the left leg is 5/ 5. Vkgx-cw-mkpv is not abnormal bilaterally. Gait was not assessed. Speech is clear. SKIN: On evaluation of the skin, no ecchymotic areas or rashes noted. DIAGNOSTIC STUDIES/LAB DATA: Laboratory data showed white blood cell count of 6.9, hemoglobin 16.1, hematocrit of 47, and platelets of 231. Sodium of 141, potassium 3.3, chloride 105, carbon dioxide 24, anion gap of 14, BUN 25, creatinine 0.94. Liver functions are unremarkable. Troponin of 0.02. TSH of 0.8. Brain CT: Impression: "No acute intracranial abnormality. Age-related atrophy and mild chronic small-vessel ischemic change." Neck CT: Impression: "Normal postcontrast neck CT." Patient's EKG showed normal sinus rhythm at the rate of 75 beats per minute with frequent PVCs. Portable chest x-ray read by myself prior to the official radiologist's report shows bilateral lower lobe atelectasis. Normal cardiac silhouette. ASSESSMENT AND PLAN: 1. A 68-year-old male with history of right nerve palsy diagnosed approximately a month ago who now has problems with swallowing and right leg weakness. At this point, his MRI of the brain showed nonspecific 3 mm change within the basal ganglia. I am unsure that this location could cause the patient's problems. Patient also has dysphagia and right leg weakness. At this point, I am going to ask Dr. Ralph from neurology to see patient in consultation. Patient is going to be placed on neuro checks every 2 hours and on telemetry monitored bed. 2. To address patient's dysphagia specifically, patient is going to have a speech therapy evaluation with a barium swallow as well as esophagogram to evaluate his swallowing function. For the time being, patient is going to be on sips of clears. He is going to be placed on intravenous hydration for the time being and on IV Protonix. 3. Patient has frequent premature ventricular contractions and has history of ventricular tachycardia with exercise. I suspect his frequent premature ventricular contractions are due to patient's hypokalemia, which is going to be replaced IV. His magnesium is at 1.9. Due to patient having problems swallowing pills and unable to take metoprolol, I will place him on a scheduled dose of metoprolol at 5 mg IV every 4 hours with hold parameters. 4. For DVT prophylaxis, patient is to be placed on heparin subcutaneously. 5. Patient's code status is full. His surrogate is his nephew, as mentioned above. TIME SPENT: Approximately 75 minutes were spent on the admission of this patient, more than half that time was spent [id number] with the patient during the interview and physical exam. [id number]/[facility] #: [id number] MTDD
[2018-09-11] MEDS: Heparin VIAL(*) 5000 UNITS/ML VIAL (FIVE THOUSAND) SUBCUT SCH ×3 (05:31→22:23)
[2018-09-11] MEDS: Pantoprazole IV* 40 MG IV SCH (09:37)
[2018-09-11] MEDS: D5W 1/2 NS KCl 20 Meq 1000 ML* 1,000 ML IV SCH ×2 (13:44→22:21)
--- NOTE | 2018-09-11 17:04 | PN ---
Subjective Date of Service: 09/11/18 Interval History: Patient aware he can;t swallow. He states his speech gets more garbled when he talks a while. Feels better since IV fluids started. No new c/o. Objective Active Medications: Heparin Sodium (Porcine) (Heparin Vial(*)) 5,000 units SUBCUT Q8HR [facility] Last Admin: 09/11/18 13:45 Dose: 5,000 units Potassium Chloride/Dextrose (D5w 1/2 Ns Kcl 20 Meq 1000 Ml*) 1,000 mls @ 125 mls/hr IV PER RATE [facility] Last Admin: 09/11/18 13:44 Dose: 125 mls/hr Metoprolol Tartrate (Lopressor Iv*) 5 mg IV Q4H [facility] Last Admin: 09/11/18 13:45 Dose: 5 mg Pantoprazole Sodium (Protonix Iv*) 40 mg IV DAILY [facility] Last Admin: 09/11/18 09:37 Dose: 40 mg Oxygen Devices in Use Now: None Appearance: Alert, in a chair. In good spirits. Looks comfortable. Eyes: No Scleral Icterus Respiratory: Symmetrical Chest Expansion and Respiratory Effort, Clear to Auscultation, Clear to Percussion, - - Strong inspiration and expiration, Cardiovascular: NL Sounds; No Murmurs; No JVD, RRR, No Edema, - Extremities: No Edema, No Clubbing, Cyanosis, - Skin: No Rash or Ulcers, No Nodules or Sclerosis, - Neurological: Alert and Oriented x 3, NL Sensation - Speech dysarthric Result Diagrams: 09/13/18 04:27 09/13/18 04:27 Assess/Plan/Problems-Billing Assessment: - Patient Problems (1) Bulbar palsy Current Visit: Yes Status: Acute Code(s): G12.22 - PROGRESSIVE BULBAR PALSY SNOMED Code(s): 85838757 Comment: Failed swallow eval, will have to stay NPO. Dr. Ralph to do testing for MG. May need PEG tube for nutrition and meds. (2) HTN (hypertension) Current Visit: Yes Status: Acute Code(s): I10 - ESSENTIAL (PRIMARY) HYPERTENSION SNOMED Code(s): 14081638 Comment: On IV metoprolol. (3) Ventricular tachycardia Current Visit: Yes Status: Acute Code(s): I47.2 - VENTRICULAR TACHYCARDIA SNOMED Code(s): 17400758 Comment: Hx of exercise-induced VT. On metoprolol at home per Dr. Chavez. On IV metoprolol as of 09/11/18.
--- NOTE | 2018-09-11 17:33 | ECHO ---
Patient: LAKEISHA RIVERO [facility] Rec#: [id number] : 1950 Date: 09/11/2018 Age: 68y Height: 173 cm / 68.1 in Weight: 88 kg / 194.0 lbs Sex: M BSA: 2.02 Room#: 433 Admit Date#: 09/11/2018 Type: Inpatient Referring: Giovanna Fowler MD Reading: Eric Chavez MD Power Checker: Alessandra Parada RDCS,RDMS CC: Jordin Steele MD Transthoracic Echocardiogram Indication: ABN EKG BP: 151/75 HR: 70 Rhythm: NSR with PVCs Findings History: Vtach, HTN, HLD Technical Comments: The study quality is fair. The study was technically limited due to the patient's inability to lay in the left lateral decubitus position. Left Ventricle: The left ventricular chamber size is normal. Mild concentric left ventricular hypertrophy is observed. Global left ventricular wall motion and contractility are within normal limits. There is normal left ventricular systolic function. The estimated ejection fraction is 55-60%. There is no consistent Doppler evidence of clinically significant diastolic dysfunction. Left Atrium: The left atrium is mildly dilated. Right Ventricle: The right ventricular chamber size and systolic function are within normal limits. Right Atrium: The right atrium is slightly dilated. Aortic Valve: The aortic valve is trileaflet. Systolic excursion of the aortic valve is normal. There is aortic annular calcification. There is mild aortic regurgitation. There is no evidence of aortic stenosis. Mitral Valve: The mitral valve leaflets appear normal. There is no evidence of mitral regurgitation. There is no evidence of mitral stenosis. Tricuspid Valve: The tricuspid valve leaflets are normal. There is trace tricuspid regurgitation. No pulmonary hypertension is noted. Pulmonic Valve: The pulmonic valve structure is not well visualized. Pericardium: There is no significant pericardial effusion. Aorta: There is borderline dilatation of the ascending aorta. There is no dilatation of the aortic arch. The aortic root is normal in size. Pulmonary Artery: The main pulmonary artery is not well visualized. Venous: The inferior vena cava appears normal in size. There is a greater than 50% respiratory change in the inferior vena cava dimension. Summary: There are no significant changes when compared to the previous study done on 12/03/14 Conclusions Mild concentric left ventricular hypertrophy is observed. Global left ventricular wall motion and contractility are within normal limits. The estimated ejection fraction is 55-60%. Systolic excursion of the aortic valve is normal. There is mild aortic regurgitation. There is no evidence of mitral regurgitation. There is trace tricuspid regurgitation. There is no significant pericardial effusion. Measurements Name Value Normal Range RVIDd (AP) 2D 2.5 cm (0.9 - 2.6) RVDdMajor (2D) 3.3 cm (2.2 - 4.4) RAd ISD 4CH 5.4 cm (3.4 - 4.9) RA (A4C)W 4.2 cm (2.9 - 4.6) IVSd (2D) 1.2 cm (0.6 - 1) LVPWd (2D) 1.1 cm (0.6 - 1) LVIDd (2D) 4.8 cm (3.6 - 5.4) LVIDs (2D) 3.1 cm - LV FS (2D) 36 % (25 - 45) Aortic Annulus 2.3 cm (1.4 - 2.6) Ao root diameter (2D) 3.2 cm (2.1 - 3.5) Ascending Ao 3.5 cm (2.1 - 3.4) Aortic arch 3.1 cm (1.8 - 3.4) LA dimension (AP) 2D 3.4 cm (2.3 - 3.8) LAd ISD 4CH 6 cm (2.9 - 5.3) LA ISD 4CH W 4 cm (2.5 - 4.5) Name Value Normal Range MV E-wave Vmax 0.7 m/sec - MV deceleration time 282 msec - MV A-wave Vmax 0.7 m/sec - MV E:A ratio 1 ratio - LV septal e' Vmax 0.09 m/sec - LV lateral e' Vmax 0.15 m/sec - LV E:e' septal ratio 8 ratio - LV E:e' lateral ratio 5 ratio - Name Value Normal Range AV Vmax 1.5 m/sec - AV VTI 29 cm - AV peak gradient 9 mmHg - AV mean gradient 4 mmHg - LVOT Vmax 1 m/sec - LVOT VTI 22 cm - LVOT peak gradient 4 mmHg - LVOT mean gradient 2 mmHg - SUMAYA Vmax 0.8 m/sec - Name Value Normal Range TR Vmax 2.5 m/sec - TR peak gradient 25 mmHg - RAP 3 mmHg - RVSP 28 mmHg - IVC diameter 1.7 cm - Name Value Normal Range PV Vmax 0.8 m/sec - PV peak gradient 2.6 mmHg -
--- NOTE | 2018-09-11 19:58 | CONS ---
CONSULTATION REPORT: DATE OF CONSULT: 09/11/18 PATIENT OF: Dr. Fowler, Dr. Steele, Dr. Chavez, and Dr. Ambriz. HISTORY OF PRESENT ILLNESS: This is a 68-year-old man with a history of at least since 08/16/18 of a right nerve palsy. He saw Dr. Ambriz who diagnosed a right nerve palsy, and had an MRI scan done of both brain and cervical spine, which did show some mild white matter disease. I reviewed these scans and this looked like it could be chronic. At that point, he had no swallowing problems, but he has had some recent neck and left cheek pain and he has had some swollen glands in his neck that has resolved; however, in the past week, he has had some difficulty swallowing and his voice has changed slightly. He is not sure, but he thinks that this is worse now than before, but there has been no major change in the past week. Yesterday, he was exercising more than usual and felt slightly short of breath and I specifically asked Dr. Fowler, who got the same history, but he did not think that this is significant. Again, he has had some difficulty swallowing. PAST MEDICAL HISTORY: Significant for irritable bowel syndrome. He is status post recent inguinal herniorrhaphy in February 2018, history of GERD, history of ventricular tachycardia that was exercise induced; on metoprolol, history of hemorrhoids, hypertension, and dyslipidemia. MEDICATIONS: Include at home: 1. IBgard 1 tablet daily. 2. Metronidazole topically to face. 3. Various vitamins. 4. Simvastatin 20 mg daily. 5. Ranitidine 300 daily. 6. Metoprolol 50 in the morning, 100 at night. 7. Reglan 5 mg at bedtime. 8. Mag-Ox 400 daily. 9. Hydrochlorothiazide 25 mg daily. 10. Nexium 40 mg daily. 11. Vitamin B12 at 1000 mcg daily. 12. Calcium carbonate 1000 mg daily. 13. Amitriptyline 10 mg at bedtime. ALLERGIES: He has no known drug allergies. FAMILY HISTORY: His mother had breast cancer and at 62. His father of lung cancer in his 80s. 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 He does not have any alcohol use currently, but had a history of alcohol abuse over 15 years ago. There is no drug use and he lives alone with his surrogate being a neurosurgeon in [place] who is his nephew. REVIEW OF SYSTEMS: Negative in all 14 spheres, other than in HPI. PHYSICAL EXAMINATION: On exam, temperature 98, pulse 68, respiratory rate is 20 , blood pressure 149/78. He is alert and oriented with normal comprehension and verbal output. He has a nasal quality to his voice. He has a right nerve palsy, a left nerve palsy, a left ptosis, which is worse when he looks up with prolonged gaze. There was some fatigability of his deltoids that were very trace fatigable for me. His hip flexors were slightly fatigable as well and I thought that that fatigable weakness was in both legs. I did not detect any shortness of breath. Chest: Clear. Cardiovascular: Regular rate and rhythm. Abdomen is soft with positive bowel sounds. DIAGNOSTIC STUDIES/LABORATORY DATA: I reviewed his recent MRI scan from today that Dr. Peres obtained which was normal. When Dr. Fowler called me earlier, I was concerned about myasthenia gravis and appropriate blood work has been sent. Labs pending. CMP is normal. INR is 1.23, normal PTT. Normal CBC, other than hematocrit of 47. I had asked for pulmonary function tests and apparently, there is a negative inspiratory force, which the office equipment technician described as a good deep breath in, but unable to keep a tight seal on the mouthpiece, which would result in a poor value and the patient is being monitored by oximetry. IMPRESSION AND PLAN: I discussed this patient with Dr. Peres that the patient most likely has myasthenic syndrome, most likely myasthenia gravis, but this could be even Lambert. We will be doing rep stim nerve conduction studies tomorrow and then we would probably presumptively treat after that, even before the blood tests are back. I am asking Dr. Peres to have pharmacy review the medicines to withdraw any that are not essential that could make myasthenia worse and I will defer to him whether the respiratory evaluation is sufficient enough at this point and we discussed the issues of obtaining a blood gas to make sure that there is no CO2 retention. Thank you for sharing his case. [id number]/[facility] #: [id number] [facility]
[2018-09-12] MEDS: Metoprolol Tartrate IV* 1 MG/ML 5 ML VIAL IV SCH ×6 (02:36→21:10)
[2018-09-12 05:38] LABS: ABS Basophils 0.1 10^3/ul (0-0.2); ABS Eosinophils 0.4 10^3/ul (0-0.6); ABS Lymphocytes 1.4 10^3/ul (1.0-4.8); ABS Monocytes 0.6 10^3/ul (0-0.8); ABS Neutrophils 3.9 10^3/ul (1.5-7.7); ABS Nucleated RBC 0 10^3/ul; Eosinophil % 6.3 %; Hematocrit 38 % (36-46); Hemoglobin 13.2 g/dL (14.0-18.0); Lymphocyte % 21.8 %; Mean Corpuscular HGB Conc 35 g/dL (31-36); Mean Corpuscular Hemoglobin 33 pg (27-31); Mean Corpuscular Volume 93 fL (80-94); Mean Platelet Volume 8.6 fL (7.4-10.4); Nucleated Red Blood Cells % 0; Platelet Count 189 10^3/uL (150-450); Red Blood Count 4.06 10^6 /uL (4.18-5.48); Red Cell Distribution Width 14 % (10.5-15); White Blood Count 6.4 10^3/uL (3.5-10.8)
[2018-09-12 05:55] LABS: BUN/Creatinine Ratio 18.6 (8-20); Calcium 8.6 mg/dL (8.6-10.3); EGFR African American 135.7 (>60); EGFR Non-African American 112.1 (>60); Potassium 3.5 mmol/L (3.5-5.0)
[2018-09-12] MEDS: Heparin VIAL(*) 5000 UNITS/ML VIAL (FIVE THOUSAND) SUBCUT SCH ×3 (06:30→21:10)
[2018-09-12] MEDS: D5W 1/2 NS KCl 20 Meq 1000 ML* 1,000 ML IV SCH ×2 (06:32→15:27)
[2018-09-12] MEDS: Pantoprazole IV* 40 MG IV SCH (09:27)
[2018-09-12 15:08] LABS: Phosphorus 2.4 mg/dL (2.5-5.0)
[2018-09-12] MEDS ORDERED: Potassium Phosphate IV* 15 MMOLE in NS 0.9% 250 ML* 250 ML IVPB ONE (18:59)
--- NOTE | 2018-09-12 20:03 | TRS ---
CC: Dr. Jordin Steele; Dr. Kavon Ralph * TRANSFER SUMMARY: DATE OF ADMISSION: 09/11/18 DATE OF TRANSFER: 09/12/18 PRIMARY CARE PROVIDER: Dr. Jordin Steele. NEUROLOGY: Dr. Kavon Ralph. FINAL DISCHARGE DIAGNOSES: 1. Myasthenia gravis syndrome. 2. Dysphagia. 3. Progressive muscular weakness, right upper and lower extremity. 4. Prior history of cranial nerve palsy (abducens nerve palsy). 5. History of irritable bowel syndrome. 6. History of gastroesophageal reflux disease. 7. History of exercise-induced ventricular tachycardia. 8. Hypertension. 9. Hyperlipidemia. HOSPITAL COURSE: The patient presented to [facility] on 09/11/18 for trouble swallowing with recent diagnosis of right cranial nerve palsy diagnosed on 08/16/[address] 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 He was seeing double vision when he looked to the right and which led to the diagnosis of cranial nerve palsy. Over the past 3 weeks, he has been complaining of increased neck pain and left- sided cheek pain. On the day of admission, it was noted that the patient was dragging his left foot and getting more dyspneic with exertion. In addition to that, his dysphagia and trouble swallowing was getting worse to the point where he was unable to take his medications including his cardiac meds with the metoprolol, feeling that they were getting stuck. That led him to come into the emergency room. He was having frequent PVCs and he was started on IV metoprolol, and neurology consultation was obtained, and a working diagnosis of neuromuscular disease such as myasthenia gravis was entertained. Neurology did recommend to proceed with obtaining his muscle-specific kinase antibody, multiple sclerosis profile, and the ACHR binding antibody, which were ordered and results are pending. Today, he was seen by neurology again, Dr. Ralph, who consulted with [facility] neuromuscular physician, Dr. Diamond, and it was determined it would be most beneficial for the patient to be transferred to the neuromuscular team at [facility] for further evaluation and possible treatment for progressive myasthenia gravis and further diagnostic studies. [facility] service was consulted and the patient was accepted with Dr. Kim and currently, we are awaiting the bed assignment. PHYSICAL EXAM ON DISCHARGE: Temperature 97.9, pulse 73, respiratory rate 20, saturation 100%, blood pressure 171/78. Generally, he is awake, alert. He does have expressive aphasia and difficulty with swallowing, able to take ice chips. Head and Neck: Normocephalic, atraumatic. Supple. Lungs: Clear to auscultation bilaterally. Cardiovascular: S1, S2, irregularly irregular. Abdomen: Positive bowel sounds. Soft, nontender, nondistended. Extremities: He is moving the upper and lower extremities, slightly weak in the right upper extremity. DIAGNOSTIC STUDIES/LAB DATA: CBC unremarkable. Chemistry is significant for potassium 3.3 in the ER last night, was supplemented to 3.5, and phosphorus 2.4. TSH 0.8. CRP 4.7. Troponin negative. Magnesium 1.9. Chest x-ray: No acute disease. CT soft tissue of the neck: Normal postcontrast CT of the neck. CT of the head: No acute intracranial abnormality, age-related atrophy. A 2D echo revealed ejection fraction 55% to 60%, LVH, mild aortic regurgitation. Esophagram reveals nonspecific functional esophagus disorder with ineffective primary peristaltic wave and tertiary contraction, possible spasm. RECOMMENDATIONS: The patient will be transferred to [place] under the service of Dr. Kim to be evaluated with Dr. Diamond. TRANSFER MEDICATIONS: 1. To continue his heparin for DVT prophylaxis. 2. Lopressor 5 mg IV q.4 hours until he is able to take his oral Toprol. 3. Protonix 40 mg IV daily. 4. IV fluids D5 half-normal saline with 20 MK. [id number]/[facility] #: [id number] [facility]
--- NOTE | 2018-09-13 00:02 | PN ---
NEUROLOGICAL FOLLOWUP NOTE: DATE OF SERVICE: 09/12/18 HISTORY: Continues to have his speech problems. I spoke to his relative, who is a his neurosurgeon, who noted that to him his voice sounded nasal over the phone as well. He continues to have his double vision, but no new complaints. MEDICATIONS: His medications are unchanged and include: 1. Metoprolol. 2. Protonix. 3. Subcu heparin. PHYSICAL EXAMINATION: On exam, temperature 97.9, pulse 72, respiratory rate 20 , blood pressure 171/78. He is alert and oriented with normal speech, although nasal sounding. Continues to have his double vision unchanged and difficulty with swallowing. There is slight fatigable weakness as described before. Chest : Clear. Cardiovascular: Regular rate and rhythm. Abdomen: Soft with positive bowel sounds. We did repetitive stim on EMG and nerve conduction of his ulnar nerve, and there was no fatigability in this muscle. His antibodies for myasthenia are pending. I spoke to Dr. Diamond at [place] afterwards and discussed that I was quite certain, but not a 100% this was myasthenia and discussed the pros and cons of empirically treating with IVIG. Given that I do not have a definitive diagnosis at this point, it would make sense before I institute treatment with potential side effects in somebody who will possibly deteriorate from the underlying process to transfer to an academic center where they can have a larger clinical experience in treating empirically before diagnosis is confirmed. I discussed this with the hospitalist, if he desires, we should be getting transferred with a CT of the thymus now and if there is any significant delay then we will empirically being treating with IVIG in the interim. Thank you for sharing this case. [id number]/[facility] #: [id number] [facility]
[2018-09-13] MEDS: Metoprolol Tartrate IV* 1 MG/ML 5 ML VIAL IV SCH ×4 (02:41→14:26)
[2018-09-13 05:04] LABS: ABS Basophils 0.1 10^3/ul (0-0.2); ABS Eosinophils 0.4 10^3/ul (0-0.6); ABS Lymphocytes 1.3 10^3/ul (1.0-4.8); ABS Monocytes 0.5 10^3/ul (0-0.8); ABS Neutrophils 3.8 10^3/ul (1.5-7.7); ABS Nucleated RBC 0 10^3/ul; Eosinophil % 6.2 %; Hematocrit 40 % (36-46); Lymphocyte % 21.3 %; Mean Corpuscular HGB Conc 35 g/dL (31-36); Mean Corpuscular Hemoglobin 32 pg (27-31); Mean Corpuscular Volume 93 fL (80-94); Mean Platelet Volume 8.6 fL (7.4-10.4); Nucleated Red Blood Cells % 0; Platelet Count 197 10^3/uL (150-450); Red Blood Count 4.33 10^6 /uL (4.18-5.48); Red Cell Distribution Width 14 % (10.5-15); White Blood Count 6.1 10^3/uL (3.5-10.8)
[2018-09-13 05:21] LABS: Calcium 8.7 mg/dL (8.6-10.3); EGFR African American 135.7 (>60); EGFR Non-African American 112.1 (>60); Magnesium 1.6 mg/dL (1.9-2.7); Phosphorus 3.4 mg/dL (2.5-5.0); Potassium 3.3 mmol/L (3.5-5.0)
[2018-09-13] MEDS: D5W 1/2 NS KCl 20 Meq 1000 ML* 1,000 ML IV SCH (06:21)
[2018-09-13] MEDS: Heparin VIAL(*) 5000 UNITS/ML VIAL (FIVE THOUSAND) SUBCUT SCH ×2 (06:24→14:26)
[2018-09-13] MEDS ORDERED: Magnesium Sulfate 2 GM IV* 2 GM/50 ML BAG IVPB ONE (08:26)
[2018-09-13] MEDS: Pantoprazole IV* 40 MG IV SCH (09:31)
[2018-09-13] MEDS: KCL 10 MEQ/50 ML IVPREMIX* 10 MEQ/50 ML BAG IV SCH ×3 (09:38→13:07)
[2018-09-13 15:47] VITALS: BP 173/90
--- NOTE | 2018-09-13 16:40 | PN ---
Hospitalist Progress Note Date of Service: 09/13/18 Patient was seen this morning in the hospital. He did not have a bed available at [facility] last night. He remained pending bed availability. He remained stable with no acute distress. Vitals stable specifically 100% saturations. Remains unable to swallow or eat. I followed with Staff and I was informed that he is getting bed this afternoon. Patient assessed at the floor, he is getting more secretion , pooling of his secretion. advised to keep head elevated during transfer. for full note please refer to my transfer summary from 09/13/18
--- NOTE | 2018-09-13 23:42 | PN ---
NEUROLOGICAL FOLLOWUP: DATE OF SERVICE: 09/13/18 PATIENT OF: Dr. Ruiz. HISTORY: He continues to have nasal voice, double vision, but no shortness of breath. He remains mildly weak and he has trouble with sustained effort. His sister and [id number] I spoke to at length and they confirm that his voice has changed in the past week or so. MEDICATIONS: His medications are unchanged, include Lopressor, Protonix and heparin subcu. PHYSICAL EXAMINATION: Temperature 98.1, pulse 58, respirations 20, blood pressure 150/71. He is alert and oriented with normal speech and comprehension. Cranial nerves II through XII shows a fatigable left ptosis, the bilateral sixth nerve palsies, the nasal speech, difficulty swallowing. There is trace weakness in deltoids on repetitive movements. Chest: Clear. Cardiovascular: Regular rate. His MuSK antibodies and acetylcholine receptor antibodies are still pending. Of note, he had a CT of his neck with no evidence of thymoma. I have spoken to his attending yesterday when transfer was arranged. Unfortunately, there was no bed available, but there is expected to be a bed within the hour. I discussed with him, the attending and the family at length that if for some reason if the bed today does not come through, then given his clinical status with inability to transfer it would make sense to begin IV infusion of IVIG here. I discussed the risks of the infusion including the significant volume challenge, the possibility of allergic reactions to them, but I do not want to start treatment for his probable and significant neurological condition, namely myasthenia. I discussed long-term treatments with the family as well and overall potential game plans, but it is discussed that it is impossible to know the exact details of what his exact course will be. The attending will call me today if he does not get transferred in the near future, and if he goes, I will need to see him in followup as an outpatient. Thank you for sharing the case. [id number]/[facility] #: [id number] [place]
== END 2018-09-13 16:10 | disposition short-term general hospital (02) | DRG 57 ==
LOC: ED 17:34 → MEDTELE 09-11 01:21 → OBSVTOIN 09-12 10:00
PROVIDERS: ADMIT Internal Medicine; ATTEND Internal Medicine
DX: G70.00 Myasthenia gravis without (acute) exacerbation (principal); G12.22 Progressive bulbar palsy; E78.00 Pure hypercholesterolemia, unspecified; I10 Essential (primary) hypertension; K21.9 Gastro-esophageal reflux disease without esophagitis; K58.9 Irritable bowel syndrome, unspecified; R13.10 Dysphagia, unspecified; E78.5 Hyperlipidemia, unspecified; M50.21 Other cervical disc displacement, high cervical region; E87.6 Hypokalemia; M62.81 Muscle weakness (generalized); H49.21 Sixth [abducent] nerve palsy, right eye; I49.3 Ventricular premature depolarization; K22.4 Dyskinesia of esophagus; Z82.49 Family history of ischemic heart disease and other diseases of the circulatory system; Z72.89 Other problems related to lifestyle; Z80.1 Family history of malignant neoplasm of trachea, bronchus and lung
CPT/HCPCS: 36415; 70450; 70491; 70551; 71045; 74220; 80048; 80053; 82040; 82042; 82784; 83519; 83605; 83735; 83880; 83916; 84100; 84443; 84484; 85025; 85610; 85730; 86140; 93005; 93306; 95885; 95907; 95937; 99285; G0378; G8978-GP-CH; G8979-GP-CH; G8980-GP-CH; J1644; J3475; J3480; J3490; Q9967

== ENCOUNTER 2021-12-17 11:56 | Observation (INO) ==
[~2021-12-17 11:56] MED LIST changes: -Buffered Lidocaine 0.9% SYRIN* 5 ML/SYR SYRINGE INTRADERM ONE; +Buffered Lidocaine 1% SYRIN 1 ml INTRADERM ONE; -Bupivacaine 0.25% EPI 200,000* 30 ML SDV ONE; -Bupivacaine 0.5% SDV PF* 30ML VIAL ONE; -Famotidine IV* 10 MG/ML 2 ML (20 mg) IV ONE; +Lactated Ringers 1000 ml BAG 1,000 ML IV SCH; -Lidocaine 1% INJ* 10 MG/ML 30 ML SDV ONE; -Midazolam* 1 MG/ML 5 ML VIAL (5 MG) ONE; -fentaNYL* 50 MCG/ML 2 ML VIAL (100 MCG VIAL) ONE
[2021-12-17] MEDS ORDERED: methylPREDNISolone SOD SUCC 125 mg 2 ML VIAL IV ONE (12:00)
[2021-12-17] MEDS ORDERED: Famotidine IV 10 MG/ML 2 ml VIAL (20 mg) IV SLOW PU ONE (12:00)
[2021-12-17] MEDS ORDERED: Famotidine IV 10 MG/ML 2 ml VIAL (20 mg) ONE (12:41)
[2021-12-17] MEDS ORDERED: ceFAZolin 2 GM in NS PREMIX 2 GM/100 ML BAG IVPB ONE (12:41)
[2021-12-17] MEDS ORDERED: methylPREDNISolone SOD SUCC 125 mg 2 ML VIAL ONE (12:41)
[2021-12-17 13:17] LABS: INR 1.21 (0.86-1.15)
[2021-12-17] MEDS ORDERED: Ondansetron 4 mg VIAL 2 MG/ML 2 ml VIAL IV PRN (14:54)
[2021-12-17] MEDS ORDERED: Magnesium Hydroxide LIQ 30 ML UDC PO PRN (14:54)
[2021-12-17] MEDS ORDERED: Ondansetron ODT 4 mg TAB 4 MG TAB PO PRN (14:54)
[2021-12-17] MEDS ORDERED: Lactated Ringers 1000 ml BAG 1,000 ML IV SCH (15:00)
[2021-12-17] MEDS ORDERED: HYDROmorphone 1 MG/1 ML SYRINGE IV PRN (15:29)
[2021-12-17] MEDS ORDERED: Naloxone 0.4 mg VIAL 0.4 mg/ml 1 ml VIAL IV PRN (15:29)
[2021-12-17] MEDS ORDERED: Polyethylene Glycol 3350 17 GM PACKET PO PRN (17:00)
[2021-12-17] MEDS ORDERED: HYDROmorphone 0.5 MG/0.5 ML SYRINGE IV PRN (20:59)
[2021-12-17] MEDS ORDERED: ceFAZolin 1 GM ADVAN 1 GM in NS 0.9% 50 ML 50 ML IVPB SCH (22:30)
[2021-12-17] MEDS: Magnesium Hydroxide LIQ 30 ML UDC PO SCH (23:45)
[2021-12-17] MEDS: CMCS: Simvastatin 20 mg TAB (NF) PO SCH (23:47)
[2021-12-18 00:45] LABS: Calcium 8.8 mg/dL (8.6-10.3); Magnesium 1.6 mg/dL (1.9-2.7); Potassium 3.4 mmol/L (3.5-5.0); eGFR CKD-EPI 92.2 (>60)
[2021-12-18] MEDS ORDERED: Potassium Chlor 20 meq TAB.ER PO ONE ×2 (02:16→07:23)
[2021-12-18] MEDS ORDERED: Magnesium Sulfate 2 gm BAG 2 GM/50 ML BAG IVPB ONE (02:16)
[2021-12-18 05:36] LABS: Hematocrit 36 % (42-52); Mean Platelet Volume 8.1 fL (7.4-10.4); Platelet Count 198 10^3/uL (150-450)
[2021-12-18 06:21] LABS: Calcium 8.7 mg/dL (8.6-10.3); Potassium 3.4 mmol/L (3.5-5.0); eGFR CKD-EPI 91.3 (>60)
[2021-12-18 07:05] LABS: Magnesium 2.4 mg/dL (1.9-2.7)
[2021-12-18] MEDS: ceFAZolin 1 GM in Dextrose 1 GM/50 ML BAG IVPB SCH ×2 (08:57→16:44)
[2021-12-18] MEDS: Magnesium Hydroxide LIQ 30 ML UDC PO SCH ×2 (10:58→20:46)
[2021-12-18] MEDS: Vitamin THERAPEUTIC TAB PO SCH (10:59)
[2021-12-18] MEDS: MYCOPHENOLATE MOFETIL 500 MG PO SCH (11:11)
[2021-12-18] MEDS: LACTOBACILLUS ACIDOPHILUS PO SCH (11:12)
[2021-12-18] MEDS: BILLION CELL PO SCH (11:12)
[2021-12-18] MEDS ORDERED: MYCOPHENOLATE MOFETIL 500 MG PO SCH (17:00)
[2021-12-18] MEDS ORDERED: [UNRECOGNIZED DRUG - OTHER] PO SCH (17:30)
[2021-12-18] MEDS: CMCS: Simvastatin 20 mg TAB (NF) PO SCH (20:48)
[2021-12-19 05:40] LABS: Hematocrit 36 % (42-52); Hemoglobin 12.1 g/dL (14.0-18.0); Mean Platelet Volume 8.4 fL (7.4-10.4); Platelet Count 151 10^3/uL (150-450)
[2021-12-19] MEDS: Magnesium Hydroxide LIQ 30 ML UDC PO SCH (07:57)
[2021-12-19] MEDS ORDERED: IB GUARD PO SCH (09:00)
[2021-12-19] MEDS ORDERED: ESOMEPRAZOLE 40 MG PO SCH (09:00)
[2021-12-19] MEDS: MYCOPHENOLATE MOFETIL 500 MG PO SCH (09:46)
[2021-12-19] MEDS: BILLION CELL PO SCH (09:49)
[2021-12-19] MEDS: LACTOBACILLUS ACIDOPHILUS PO SCH (09:49)
[2021-12-19] MEDS: Vitamin THERAPEUTIC TAB PO SCH (09:51)
[2021-12-19 11:30] VITALS: BP 123/60
== END 2021-12-19 12:30 | disposition home or self-care (01) ==
LOC: INTOOBSV 11:56 → AA 11:56 → SSU 14:54
PROVIDERS: ADMIT Orthopaedic Surgery Adult Reconstructive Orthopaedic Surgery; ATTEND Orthopaedic Surgery Adult Reconstructive Orthopaedic Surgery